=== PATIENT | male | born 1975 | race Caucasian/White ===

== ENCOUNTER 2016-06-27 22:29 | Emergency (ER) | payer BC ==
[~2016-06-27] VITALS: Ht 180.3 cm; Wt 106.1 kg
[2016-06-28] MEDS ORDERED: CLEOCIN300 MG PO (00:08)
[2016-06-28] MEDS ORDERED: MOTRIN800 MG PO (00:08)
[2016-06-28 00:36] VITALS: BP 143/103
== END 2016-06-28 00:38 | disposition home or self-care (01) ==
LOC: EXP 22:29 → EME 22:29 → EXP 06-28 00:38
DX: S61.531A Puncture wound without foreign body of right wrist, initial encounter (principal); L03.113 Cellulitis of right upper limb; W45.0XXA Nail entering through skin, initial encounter
CPT/HCPCS: 99281; 99283